=== PATIENT | male | born 1960 | race Caucasian/White ===

== ENCOUNTER 2019-11-19 06:19 | Day surgery (SDC) | payer MEDICAID ==
[~2019-11-19] VITALS: Ht 177.8 cm; Wt 85.5 kg
[~2019-11-19 06:19] MED LIST: SODIUM CHLORIDE 0.9% 1,000 ML ONE
[2019-11-19] MEDS ORDERED: LIDOCAINE 4% 50 ML SOLUTION TP ONE (06:20)
[2019-11-19] MEDS ORDERED: LIDOCAINE 2% 30 ML JELLY TP ONE (06:20)
[2019-11-19] MEDS ORDERED: BENZOCAINE 20% 50 MCG/SPRAY 57 GM TP ONE (06:20)
[2019-11-19] MEDS ORDERED: ALBUTEROL SULFATE 2.5 MG/0.5 ML NEB SOLUTION NEB ONE (06:20)
[2019-11-19] MEDS ORDERED: SODIUM CHLORIDE 0.9% 1,000 ML IV ONE (07:00)
[2019-11-19] MEDS ORDERED: DIPY75TA PO (07:44)
[2019-11-19] MEDS ORDERED: IBUP-2077 PO (07:44)
[2019-11-19] MEDS ORDERED: MYCO250C7 PO (07:44)
[2019-11-19] MEDS ORDERED: HYD50 PO (07:44)
[2019-11-19] MEDS ORDERED: TAMS-13 PO (07:44)
[2019-11-19] MEDS ORDERED: NIFE-40 PO (07:44)
[2019-11-19] MEDS ORDERED: OMEP40CA12 PO (07:44)
[2019-11-19] MEDS ORDERED: CYCL10TA7 PO (07:44)
[2019-11-19] MEDS ORDERED: MONT10TA26 PO (07:44)
[2019-11-19] MEDS ORDERED: CILO100T PO (07:46)
[2019-11-19] MEDS ORDERED: MIDAZOLAM HCL 2 MG/2 ML VIAL ONE (08:07)
[2019-11-19] MEDS ORDERED: FentaNYL CITRATE-PF 100 MCG/2 ML VIAL ONE (08:07)
[2019-11-19] MEDS ORDERED: MethylPREDNISolone SOD SUCC 125 MG/2 ML VIAL IVP ONE (09:15)
[2019-11-19] MEDS ORDERED: MethylPREDNISolone SOD SUCC 125 MG/2 ML VIAL ONE (09:21)
[2019-11-19] MEDS ORDERED: OXYGEN THERAPY IH SCH (20:00)
== END 2019-11-19 10:35 | disposition home or self-care (01) ==
LOC: SURGERY 06:19
PROVIDERS: ATTEND Internal Medicine Critical Care Medicine
DX: R05 Cough (principal); R04.2 Hemoptysis; J98.4 Other disorders of lung; J34.89 Other specified disorders of nose and nasal sinuses; J98.8 Other specified respiratory disorders; J38.4 Edema of larynx; B37.0 Candidal stomatitis; I11.9 Hypertensive heart disease without heart failure; K21.9 Gastro-esophageal reflux disease without esophagitis; Z87.891 Personal history of nicotine dependence; F12.90 Cannabis use, unspecified, uncomplicated; Z79.899 Other long term (current) drug therapy; R19.00 Intra-abdominal and pelvic swelling, mass and lump, unspecified site
CPT/HCPCS: 31623; 31624; 71045; 87070; 87101; 87206; 87220; 88184; 88185; 93005; J2250; J2930; J3010; J7030; 87015; 87205; 88312

== ENCOUNTER 2021-12-05 05:46 | Day surgery (SDC) | payer MEDICAID ==
[~2021-12-05] VITALS: Ht 177.8 cm; Wt 77.3 kg
[~2021-12-05 05:46] MED LIST changes: +CILO100T PO; +CYCL10TA16 PO; +DIPY75TA PO; +HYDR-4584 PO; +IBUP-2077 PO; +MONT-40 PO; +MYCO250C27 PO; +NIFE-40 PO; +OMEP40CA21 PO; -SODIUM CHLORIDE 0.9% 1,000 ML ONE; +TAMS-13 PO
[2021-12-05] MEDS ORDERED: SODIUM CHLORIDE 0.9% 1,000 ML IV ONE (06:30)
[2021-12-05] MEDS ORDERED: SODIUM CHLORIDE 0.9% 1,000 ML ONE (06:31)
[2021-12-05 06:37] LABS: COVID AG,FIA SOURCE NASAL SWAB
[2021-12-05] MEDS ORDERED: HYDR200T38 PO (06:57)
[2021-12-05] MEDS ORDERED: METO25 PO (06:57)
[2021-12-05] MEDS ORDERED: ALBU8.5H8 IH (06:57)
[2021-12-05] MEDS ORDERED: MIDAZOLAM HCL 5 MG/ML VIAL ONE (07:54)
[2021-12-05] MEDS ORDERED: FentaNYL CITRATE PF 100 MCG/2 ML VIAL ONE (07:54)
[2021-12-05] MEDS ORDERED: MethylPREDNISolone SOD SUCC 125 MG/2 ML VIAL IVP ONE (09:15)
[2021-12-05] MEDS ORDERED: MethylPREDNISolone SOD SUCC 125 MG/2 ML VIAL ONE (10:10)
[2021-12-05] MEDS ORDERED: OXYGEN THERAPY IH SCH (20:00)
== END 2021-12-05 11:42 | disposition home or self-care (01) ==
LOC: SURGERY 05:46
PROVIDERS: ATTEND Internal Medicine Critical Care Medicine
DX: J38.4 Edema of larynx (principal); B37.0 Candidal stomatitis; I10 Essential (primary) hypertension; J98.09 Other diseases of bronchus, not elsewhere classified; J98.8 Other specified respiratory disorders; K21.9 Gastro-esophageal reflux disease without esophagitis; Z87.891 Personal history of nicotine dependence; Z79.899 Other long term (current) drug therapy; Z98.890 Other specified postprocedural states
CPT/HCPCS: 31623; 31624; 71045; 87015; 87070; 87101; 87206; 87220; 87426; 88112; 88184; 88185; 88312; C9803; J2250; J2930; J3010; J7030